=== PATIENT | female | born 1960 | race Caucasian/White ===

== ENCOUNTER 2016-05-18 06:04 | Emergency (ER) | payer OTHER, MEDICAID ==
--- NOTE | 2016-05-18 06:09 | EDPHY ---
H & P HPI/ROS: HPI CHIEF COMPLAINT: Left ankle pain HISTORY OF PRESENT ILLNESS: This patient 56-year-old female significant past medical history for schizophrenia and thyroid disease presents emergency room by EMS after she rolled out of bed landing on her left ankle she now has 7/10 left ankle pain. She denies ever previous history of this angle she is unsure exactly how she fell but did rule out of bed and now has ankle pain and swelling. No other injuries. Past Medical History: Schizophrenia, thyroid disease Past Surgical History: Left wrist surgery Social History: Lives in apartment independent, denies drugs alcohol tobacco products Family History: Noncontributory ROS REVIEW OF SYSTEMS: A comprehensive 10 point review of systems is otherwise negative aside from elements mentioned in the history of present illness. Exam Constitutional triage nursing summary reviewed, vital signs reviewed, awake/ alert. Eyes normal conjunctivae and sclera, EOMI, PERRLA. HENT normal inspection, atraumatic, moist mucus membranes, no epistaxis, neck supple/ no meningismus, no raccoon eyes. Respiratory clear to auscultation bilaterally, normal breath sounds, no respiratory distress, no wheezing. Cardiovascular rate normal, regular rhythm, no murmur, no edema, distal pulses normal. Gastrointestinal soft, non-tender, no rebound, no guarding, normal bowel sounds, no distension, no pulsatile mass. Genitourinary no CVA tenderness. Musculoskeletal left lower extremity: tender palpation over the lateral and medial malleolus there is swelling present and ecchymosis, her foot is neurovascular intact is warm she has full range of motion but tenderness to the ankle, good cap refill, good pulses. no midline vertebral tenderness, full range of motion, no calf swelling, no tenderness of extremities, no meningismus , good pulses, neurovascularly intact. Skin pink, warm, & dry, no rash, skin atraumatic. Neurologic awake, alert and oriented x 3, AAOx3, moves all 4 extremities equally, motor intact, sensory intact, CN II-XII intact, normal cerebellar, normal vision, normal speech. Psychiatric normal mood/affect. Heme/Lymph/Immune no lymphadenopathy. Differential Diagnosis: Includes but is not limited to in a particular order, ankle sprain, ankle fracture, by mouth fracture, trimalleolar fracture. Medical Decision Making: This patient had an x-ray of her left ankle the rule out fracture, most likely this patient will need a splint posterior slab with a stirrup. She is in a great deal of pain 11/[address] an IV in her give her IV fentanyl for pain control IV Zofran for nausea and IV fluid. Re-evaluation: ED x-ray: Left ankle this shows a distal fibula fracture and I believe a medial malleolus fracture. Image interpreted by myself. 0648: This patient be placed in a splint posterior slab short-leg with stirrups. She will need crutches she will need to be nonweightbearing. 0716: Patient is feeling much better after IV fentanyl 50 mcg. She has been placed in a splint posterior short leg and stirrup. Post splint placement she is neurovascularly intact. She feels comfortable in a splint she feels comfortable going home with crutches. She understands she needs to follow up with Orthopedics. Patient has been given a prescription for [place]. 0725: I did speak with Dr. Lyon who agrees with this plan to follow up outpatient with Orthopedics. Again at time of discharge her pain is controlled , no signs of compartment syndrome, left foot is neurovascular intact, splint in place appropriate. She understands follow-up with Orthopedics return emergency room if there is any worsening symptoms questions or concerns. Source: Patient, EMS - Personal History Tetanus Vaccine Date: 3wks ago - Medical/Surgical History Hx Asthma: No Hx Chronic Respiratory Disease: No Hx Diabetes: No Hx Cardiac Disease: No Hx Renal Disease: No Hx Cirrhosis: No Hx Alcoholism: No Hx HIV/AIDS: No Hx Splenectomy or Spleen Trauma: No Other PMH: cholecystectomy, left elbow surgery, hypothyroidism, schizophenia - Social History Smoking Status: Never smoked Constitutional: Initial Vital Signs Temperature (C) 37 C 05/18/16 06:13 Heart Rate 77 05/18/16 06:13 Respiratory Rate 16 05/18/16 06:13 Blood Pressure 110/82 H 05/18/16 06:13 O2 Sat (%) 97 05/18/16 06:13 O2 Delivery Mode Room Air O2 (L/minute) 2 Allergies/Adverse Reactions: No Known Allergies Allergy (Unverified 05/18/16 06:10) Home Medications: Medication Instructions Recorded Benztropine Mesylate [Cogentin 2 mg PO DAILY@1400 04/06/12 (RX)] Levothyroxine [Synthroid 50 mcg 50 mcg PO DAILY06 04/06/12 (RX)] fluPHENAZine HCL [Prolixin 10 MG 20 mg PO DAILY@1600 04/06/12 (RX)] AZITHROMYCIN [Z-PACK] 500 mg PO DAILY #1 packet 04/14/15 Albuterol [Proventil Inhaler HFA 1 - 2 puffs IH Q4PRN PRN #1 mdi 04/14/15 (*)] Codeine/Promethazine [Phenergan W/ 5 ml PO Q6 PRN #1 bottle 04/14/15 Codeine Syrup] INVEGA 04/14/15 Hydrocodone/APAP 5/325 [[place] 1 - 2 tab PO Q4H PRN #10 tab 05/18/16 5/325] Medical Decision Making - Data Points Medications Given: Discontinued Medications Fentanyl (Sublimaze) 50 mcg IVP EDNOW ONE Stop: 05/18/16 06:16 Last Admin: 05/18/16 06:35 Dose: 50 mcg Sodium Chloride (Ns) 500 mls @ 0 mls/hr IV ONCE ONE PRN Reason: Wide Open Stop: 05/18/16 06:16 Last Admin: 05/18/16 06:34 Dose: 500 mls Ondansetron HCl (Zofran) 4 mg IVP EDNOW ONE Stop: 05/18/16 06:16 Last Admin: 05/18/16 06:34 Dose: 4 mg Departure - Departure Disposition: Home, Routine, Self-Care Clinical Impression: Ankle fracture Qualifiers: Encounter type: initial encounter Fracture type: closed Laterality: left Qualifier Code: (S82.892A) Other fracture of left lower leg, initial encounter for closed fracture Condition: Good Instructions: Ankle Fracture (ED) Additional Instructions: 1. Please ice your ankle. 2. Please stay in your splint. Do not Bear Weight. 3. Return to the emergency room if he has any worsening symptoms this includes severe pain, swelling questions or concerns. 4. Please follow up with Orthopedics. Referrals: Patient,NotPresent [Unknown] - As per Instructions Hollis Lyon MD [Medical Doctor] - As per Instructions Prescriptions: Hydrocodone/APAP 5/325 [[place] 5/325] 1 - 2 tab PO Q4H PRN #10 tab PRN Reason: Pain, Moderate
[2016-05-18 06:15] VITALS: BP 110/82; PULSE 77; RESP 16; TEMP 98.6
[2016-05-18] MEDS ORDERED: NS 500 ML IV ONE (06:15)
[2016-05-18] MEDS ORDERED: fentaNYL 100 MCG/2 ML INJ IVP ONE (06:15)
[2016-05-18] MEDS ORDERED: ONDANSETRON 4 MG/2 ML VIAL IVP ONE (06:15)
[2016-05-18 06:51] VITALS: O2SAT 98
--- NOTE | 2016-05-18 09:07 | DX ---
Left Ankle, Three Views 6:23 a.m. CLINICAL HISTORY: 56-year-old female in the ED complaining of left lateral ankle pain. COMPARISON STUDY: None. FINDINGS: There is an acute obliquely-oriented mildly displaced fracture involving the distal fibular diaphysis. There is also an age-indeterminate avulsion fragment off the lateral malleolus. There is also a mildly displaced medial malleolus fracture, and the ankle mortise is offset. The bones appear mildly demineralized. On the lateral view, there is some irregularity along the distal dorsal talus, suggestive of a cortical fracture. The subtalar joint is normal. There is a punctate unfused os peron eum along the plantar portion of the cuboid. There is a mild hallux valgus configuration. IMPRESSION: 1. Mildly displaced obliquely-oriented distal fibular diaphyseal fracture. 2. Acute medial malleolar avulsion fracture. 3. Age-indeterminate lateral malleolar avulsion fragment. 4. Distal dorsal talar cortical fractures. 5. Ankle mortise offset. 6. Mild bone demineralization. When clinically feasible, a DEXA scan is suggested.
== END 2016-05-18 08:04 | disposition home or self-care (01) ==
LOC: EDUNIT#
DX: S82.832A Other fracture of upper and lower end of left fibula, initial encounter for closed fracture (principal); W06.XXXA Fall from bed, initial encounter; Y93.89 Activity, other specified
CPT/HCPCS: 73610; 96374; 96375; 99284; J2405; J3010

== ENCOUNTER 2016-05-29 06:15 | Day surgery (SDC) | payer OTHER, MEDICAID ==
[2016-05-29] MEDS ORDERED: MIDAZOLAM 2 MG/2 ML VIAL ONE (07:10)
[2016-05-29] MEDS ORDERED: BUPIVACAINE 0.5% 30 ML SDV ONE (07:15)
[2016-05-29] MEDS ORDERED: DEXAMETHASONE 4 MG/ML VIAL ONE (07:23)
[2016-05-29] MEDS ORDERED: fentaNYL 250 MCG/5 ML INJ ONE (07:23)
[2016-05-29] MEDS ORDERED: PROPOFOL 200 MG/20 ML VIAL ONE (07:23)
[2016-05-29] MEDS ORDERED: ONDANSETRON 4 MG/2 ML VIAL ONE (07:23)
[2016-05-29] MEDS ORDERED: ROCURONIUM 50 MG/5 ML VIAL ONE (07:26)
[2016-05-29] MEDS ORDERED: LIDOCAINE 2% 5 ML SDV ONE (07:27)
[2016-05-29] MEDS ORDERED: PHENYLEPHRINE 10 MG/ML SDV ONE (07:30)
[2016-05-29] MEDS ORDERED: GLYCOPYRROLATE 0.2 MG/1 ML VIAL ONE (07:30)
[2016-05-29] MEDS ORDERED: SUGAMMADEX SODIUM 200 MG/2 ML VIAL IVP ONE (07:51)
[2016-05-29] MEDS ORDERED: KETOROLAC 30 MG/1 ML SDV ONE (08:39)
[2016-05-29] MEDS ORDERED: fentaNYL 100 MCG/2 ML INJ ONE (09:38)
[2016-05-29] MEDS ORDERED: OXYCODONE/APAP 5/325 TAB ONE ×2 (09:39→11:29)
--- NOTE | 2016-05-29 12:48 | GOP ---
[f rep st] OPERATIVE REPORT DATE OF OPERATION: 05/29/2016 SURGEON: Jose Alfredo Richards DPM FAMILY CONSUMER SCIENTIST: None. ANESTHESIA: General. PREOPERATIVE DIAGNOSIS: Bimalleolar left ankle fracture. POSTOPERATIVE DIAGNOSIS: Bimalleolar left ankle fracture. PROCEDURE PERFORMED: Open reduction internal fixation of the patient's left ankle fracture. FINDINGS: ESTIMATED BLOOD LOSS: Scant. DESCRIPTION OF PROCEDURE: Under mild sedation, this patient was brought into the operating room and placed on the operating table in the supine position. Following induction of general anesthesia, a n onsterile pneumatic thigh tourniquet was placed about the patient's well-padded left thigh. An ipsil ateral hip bump was also placed. At this time, 30 cc of 0.5% Marcaine plain was infiltrated about th e patient's left ankle in a regional block. The foot, ankle, and lower leg were then scrubbed, prepp ed and draped in the usual aseptic manner. An Esmarch bandage was utilized to exsanguinate the patie nt's left lower extremity and the tourniquet was inflated to 300 mmHg. Attention was then directed to the lateral aspect overlying the patient's left distal fibula. The in cision measured roughly 7 cm and was deepened via sharp and blunt dissection, care being taken to margaret ntify and retract all vital neural and vascular structures. All bleeders were ligated and cauterized as necessary. A periosteal incision made in line with the skin incision was made on the lateral asp ect of the fibula. The periosteal tissues were reflected anteriorly and posteriorly, thus exposing t he lateral aspect of the patient's left distal fibula. Fracture line was immediately identified. He matoma was evacuated with a combination of curettage as well as lavage. The fracture was reduced wit h 2 bone lobster bone reduction forceps. Reduction was checked under intraoperative fluoroscopy and an inner fragmentary screw was placed using standard AO principles and techniques, measuring 16 mm. Compression was noted to be excellent and fracture reduction was noted to be anatomic. A contoured l eft fibula plate was placed on the lateral aspect of the patient's left fibula and held in place with olive wires. Next, utilizing a combination of cortical as well as locking screws, the plate was hel d in place. The olive wires were removed and passed from the operative field. Again, intraoperative fluoroscopy was utilized and anatomic alevism of the mortise was complete. The wound was flushe d with copious amounts of sterile normal saline and the wound was closed in layers with the periostea l tissues being closed with 2-0 Vicryl, the subcutaneous layers being closed with 3-0 Monocryl, and t he skin was closed with a running baseball-type suture of 4-0 Prolene. The hip bump was removed and the external rotation was attained of the left lower extremity. Attenti on was then directed to the area overlying the anteromedial malleolus where a 3 cm longitudinal incis ion was made. The incision was deepened via sharp and blunt dissection, care being taken to identify and retract all vital neural and vascular structures. The saphenous vein was identified and retract ed anteriorly. Periosteal tissues were incised in line with the skin incision and reflected anterior ly and posteriorly, thus exposing the anteromedial malleolar fracture. Hematoma was evacuated with l avage and curettage. Under manual compression, a threaded K-wire was placed across the fracture site . This was checked under intraoperative fluoroscopy. Using standard AO principles and techniques, a 50 mm long-thread, partially-threaded, cannulated 4.0 mm screw was placed across the fracture site w ith a washer, and compression was noted to be excellent. Final intraoperative fluoroscopy was utiliz ed to assess the reduction. The left ankle mortise was returned to its anatomic position. The media l malleolar wound was flushed with copious amounts of sterile normal saline. The wound was closed in layers with 2-0 Vicryl, closing the periosteal tissues. The subcutaneous layer was closed with 3-0 Monocryl and the skin was closed with a running baseball type suture of 4-0 Prolene. The wound was dressed with Xeroform and a sterile compressive dressing consisting of 4 x 4's and Klin g. A light Coban wrap was also applied. Posterior splint was applied to hold the patient's ankle at 90 degrees, as well as help with any postoperative edema. The patient tolerated the procedure and a nesthesia well. She was transferred to the recovery room with vital signs stable, vascular status in tact to all digits of the left foot. It should be noted that after the wound dressings were placed, the tourniquet was dropped and a prompt hyperemic response was noted to all digits of the left foot. Following postoperative monitoring, the patient will be discharged home on the following written and oral postoperative instructions: 1. Keep dressing clean, dry, and intact. 2. Use caution while taking pain medication. 3. Nonweightbearing at all times with knee scooter. 4. All followup questions and concerns should be directed toward [facility] at . PATHOLOGY: None. HEMOSTASIS: Pneumatic thigh tourniquet at 300 mmHg x79 minutes. MATERIALS: A contoured fibular plate with a combination of locking and cortical screws, a 2.7 interf ragmentary screw measuring 16 mm, as well as a 4.0 long-thread, cannulated, partially-threaded screw measuring 50 mm with a washer. INJECTABLES: 30 cc of a regional ankle block of 0.5% Marcaine plain. COMPLICATIONS: None. INDICATIONS FOR PROCEDURE: The patient is a 56-year-old woman who presented to my office after falli ng out of bed and breaking her left ankle. She was triaged in the emergency department and presented to my office in a lower extremity splint. X-rays showed a laterally displaced spiral oblique fractu re of the left fibula, as well as a laterally translated talus and a small (but still dislocated) ant eromedial malleolus fracture. The patient was presented with options as well as risks benefits and a lternatives. The patient wishes to proceed. /[id number]/MODL
== END 2016-05-29 11:35 | disposition home or self-care (01) ==
LOC: FSGY 06:15
PROVIDERS: ATTEND Podiatrist Foot & Ankle Surgery
PROC: 0QSK04Z Reposition Left Fibula with Internal Fixation Device, Open Approach (ICD-10-PCS; principal; 2016-05-29 07:15)
DX: S82.842A Displaced bimalleolar fracture of left lower leg, initial encounter for closed fracture (principal); W06.XXXA Fall from bed, initial encounter; Y93.89 Activity, other specified; Y99.8 Other external cause status; E03.9 Hypothyroidism, unspecified; F20.9 Schizophrenia, unspecified
CPT/HCPCS: 27814; C1769; C1713; J0690; J1100; J1885; J2250; J2370; J2405; J2704; J3010

== ENCOUNTER → 2016-06-21 | Outpatient (CLI) | payer OTHER, MEDICAID | LOC: BMCIMAGING 13:45 | PROVIDERS: ATTEND Podiatrist Foot & Ankle Surgery | DX: S82.832D Other fracture of upper and lower end of left fibula, subsequent encounter for closed fracture with routine healing (principal); S82.52XD Displaced fracture of medial malleolus of left tibia, subsequent encounter for closed fracture with routine healing; Z96.9 Presence of functional implant, unspecified ==

== ENCOUNTER → 2016-07-12 | Outpatient (CLI) | payer OTHER, MEDICAID | LOC: BMCIMAGING 13:56 | PROVIDERS: ATTEND Podiatrist Foot & Ankle Surgery | DX: S82.432A Displaced oblique fracture of shaft of left fibula, initial encounter for closed fracture (principal) ==

== ENCOUNTER 2017-04-05 19:46 | Emergency (ER) | payer OTHER, MEDICAID ==
[2017-04-05] MEDS ORDERED: LORazepam 1 MG TAB ONE (19:59)
[2017-04-05] MEDS ORDERED: LORazepam 1 MG TAB PO ONE (20:00)
--- NOTE | 2017-04-05 20:03 | EDPHY ---
H & P Time Seen by Provider: 04/05/17 19:49 HPI/ROS: CHIEF COMPLAINT: Panic attack HISTORY OF PRESENT ILLNESS: The patient is a 56-year-old female with history of schizophrenia and anxiety who comes to the emergency department afraid that she may be having a panic attack versus medication reaction. She takes several psychotropic medications including Prozac, Cogentin, Prolixin, Invega and Ativan. She also takes Requip for restless legs Synthroid and over the last 3 days began taking a diet pill called "by by [employer]". She states she has also not eaten very well and had a lot of sugar. This evening she began feeling anxious similar to previous panic attacks. She did not take any of her Ativan but decided to come to the ER because she is worried about interaction with her Synthroid. She has not changed her Synthroid dose. She feels much better after arriving to the emergency department. She denies illicit drug or alcohol use. REVIEW OF SYSTEMS: Constitutional: denies: chills, fever, recent illness, recent injury EENTM: denies: blurred vision, double vision, nose congestion Respiratory: denies: cough, shortness of breath Cardiac: denies: chest pain, irregular heart rate, lightheadedness, palpitations Gastrointestinal/Abdominal: denies: abdominal pain, diarrhea, nausea, vomiting, blood streaked stools Genitourinary: denies: dysuria, frequency, hematuria, pain Musculoskeletal: denies: joint pain, muscle pain Skin: denies: lesions, rash, jaundice, bruising Neurological: denies: headache, numbness, paresthesia, tingling, dizziness, weakness Hematologic/Lymphatic: denies: blood clots, easy bleeding, easy bruising Immunologic/allergic: denies: HIV/AIDS, transplant EXAM: GENERAL: Well-appearing, overweight and in no acute distress. HEAD: Atraumatic, normocephalic. EYES: Pupils equal round and reactive to light, extraocular movements intact, sclera anicteric, conjunctiva are normal. ENT: TMs normal, nares patent, oropharynx clear without exudates. Moist mucous membranes. NECK: Normal range of motion, supple without lymphadenopathy or JVD. LUNGS: Breath sounds clear to auscultation bilaterally and equal. No wheezes rales or rhonchi. HEART: Regular rate and rhythm without murmurs, rubs or gallops. ABDOMEN: Soft, nontender, normoactive bowel sounds. No guarding, no rebound. No masses appreciated. BACK: No CVA tenderness, no spinal tenderness, step-offs or deformities EXTREMITIES: Normal range of motion, no pitting or edema. No clubbing or cyanosis. NEUROLOGICAL: Cranial nerves II through XII grossly intact. Normal speech, normal gait. 5/5 strength, normal movement in all extremities, normal sensation PSYCH: Normal mood, normal affect. SKIN: Warm, dry, normal turgor, no visible rashes or lesions. Source: Patient Exam Limitations: No limitations - Personal History Tetanus Vaccine Date: 3wks ago - Medical/Surgical History Hx Asthma: No Hx Chronic Respiratory Disease: No Hx Diabetes: No Hx Cardiac Disease: No Hx Renal Disease: No Hx Cirrhosis: No Hx Alcoholism: No Hx HIV/AIDS: No Hx Splenectomy or Spleen Trauma: No Other PMH: cholecystectomy, left elbow surgery, hypothyroidism, schizophenia - Family History Significant Family History: No pertinent family hx - Social History Smoking Status: Never smoked Alcohol Use: Sober Drug Use: None Constitutional: Initial Vital Signs Temperature (C) 36.7 C 04/05/17 19:50 Heart Rate 80 04/05/17 19:50 Respiratory Rate 21 H 04/05/17 19:50 Blood Pressure 158/84 H 04/05/17 19:50 O2 Sat (%) 95 04/05/17 19:50 O2 Delivery Mode Room Air Allergies/Adverse Reactions: No Known Allergies Allergy (Verified 04/05/17 20:04) Home Medications: Medication Instructions Recorded Benztropine Mesylate [Cogentin 2 mg PO DAILY@1400 04/06/12 (RX)] Levothyroxine [Synthroid 50 mcg 50 mcg PO DAILY06 04/06/12 (RX)] fluPHENAZine HCL [Prolixin 10 MG 20 mg PO DAILY@1600 04/06/12 (RX)] Codeine/Promethazine [Phenergan W/ 5 ml PO Q6 PRN #1 bottle 04/14/15 Codeine Syrup] INVEGA 04/14/15 Hydrocodone/APAP 5/325 [[place] 1 - 2 tab PO Q4H PRN #10 tab 05/18/16 5/325] Medical Decision Making - Diagnostics EKG Interpretation: An EKG obtained and was read and documented in trace view. Please see trace view for full reading and report. Sinus rhythm, no acute ischemic changes, unchanged from previous ED Course/Re-evaluation: Patient appears calm and cooperative. She has no complaints currently. She thinks that she had an anxiety attack verses medication interaction between her diet pill which is likely stimulant and her Synthroid. We will obtain an EKG and treat her with Ativan and observed. She does not wish to have any further testing at this time. The patient states that she feels much better. She is ambulatory here in the emergency depart without difficulty. Differential Diagnosis: Partial list of the Differential diagnosis considered include but were not limited to; anxiety, medication reaction, palpitations and although unlikely based on the history and physical exam, I also considered infection, fever, arrhythmia, acute coronary disease . I discussed these differential diagnoses and the plan with the patient as well as the usual and expected course. The patient understands that the diagnosis is provisional and that in medicine we are not always correct and that further workup is often warranted. Usual and customary warnings were given. All of the patient's questions were answered. The patient was instructed to return to the emergency department should the symptoms at all worsen or return, otherwise to followup with the physician as we discussed. - Data Points Medications Given: Discontinued Medications Lorazepam (Ativan) 1 mg PO EDNOW ONE Stop: 04/05/17 20:01 Last Admin: 04/05/17 20:01 Dose: 1 mg Departure - Departure Disposition: Home, Routine, Self-Care Clinical Impression: Panic attack, Stimulant abuse Condition: Good Instructions: Panic Attack (ED) Additional Instructions: Discontinue use of the diet pill. Referrals: Patient,NotPresent [Unknown] - As per Instructions [facility],. [Clinic] - As per Instructions
[2017-04-05 20:06] VITALS: BP 158/84; PULSE 80; RESP 21; TEMP 98.1; O2SAT 95
--- NOTE | 2017-04-05 20:07 | CPEKG ---
Heart Rate: 82 RR Interval: 732 P-R Interval: 148 QRSD Interval: 86 QT Interval: 384 QTC Interval: 449 P Dixie: 50 QRS Dixie: 17 T Wave Dixie: 12 EKG Severity - NORMAL ECG - EKG Impression: SINUS RHYTHM EKG Impression: Unchanged from previous Electronically Signed By: Zachary Vann 05-Apr-2017 20:16:12
== END 2017-04-05 20:35 | disposition home or self-care (01) ==
LOC: EDUNIT#
DX: F41.0 Panic disorder [episodic paroxysmal anxiety] (principal); F15.10 Other stimulant abuse, uncomplicated

== ENCOUNTER → 2018-06-02 | Outpatient (CLI) | payer OTHER, MEDICAID | LOC: FIMAGING 09:52 | PROVIDERS: ATTEND Psychiatry & Neurology Neurology | DX: G31.9 Degenerative disease of nervous system, unspecified (principal); G21.19 Other drug induced secondary parkinsonism ==